=== PATIENT | male | born 1980 | race Hispanic/Latino ===

== ENCOUNTER 2020-09-04 13:00 | Inpatient (IN) | payer OTHER, SELFPAY ==
--- OUTSIDE RECORDS SUMMARY | 2020-09-04 13:02 | XMS REPORT | Continuity of Care Document ---
:1980 Author Organization [facility] t Address [facility] [place] [address] [place] [id number] Care Team Providers Name Role Phone NONE Primary Care Physician Unavailable Problems This patient has no known problems. Allergies, Adverse Reactions, Alerts This patient has no known allergies or adverse reactions. Medications This patient has no known medications. Procedures This patient has no known procedures. Encounters Start End Encounter Admission Attending Care Care Encounter Source Date/Time Date/Time Type Type Clinicians Facility Department ID 2016-08-05 2016-08-05 Emergency [facility] [id number] Medical 12:20:00 12:20:00 [facility] Results This patient has no known results.
[2020-09-04 13:49] LABS: Absolute Lymphocytes (CBC) 4.4 K/uL (0.7-4.9); Basophils % 0.4 % (0-1.3); Hematocrit 49.4 % (39.6-49.0); Lymphocytes % 16.5 % (15.3-44.8); MPV 8.4 fL (7.6-11.3); RBC Red Blood Cell Count 5.49 M/uL (4.33-5.43)
[2020-09-04] MEDS ORDERED: ONDANSETRON 4 MG/2 ML VIAL ONE (13:51)
[2020-09-04 13:58] LABS: Potassium 3.4 mmol/L (3.5-5.1)
[2020-09-04] MEDS ORDERED: FOSPHENYTOIN PE 1,000 MG in NA CHLORIDE 0.9% 100 ML IV ONE (14:00)
--- NOTE | 2020-09-04 14:07 | RAD REPORT ---
EXAM DESCRIPTION: CT - Head Brain Wo Cont - 09/04/2020 1:48 pm CLINICAL HISTORY: SEIZURE COMPARISON: <Comparisons> TECHNIQUE: Axial 5 mm thick images of the head were obtained without IV contrast. All CT scans are performed using dose optimization technique as appropriate and may include automated exposure control or mA/KV adjustment according to patient size. FINDINGS: No intracranial hemorrhage, mass, edema or shift of mid-line structures. No acute infarcti on changes seen. No abnormal extra-axial fluid collections. Ventricles are normal. Physiologic calci fications are present. Mastoid air cells and visualized portions of the paranasal sinuses are clear. No acute bony findings. IMPRESSION: Negative non-contrast CT head examination. No abnormality seen as possible seizure foc us.
[2020-09-04 14:16] LABS: Arterial Blood Carboxyhemoglob 0.5 % (0-1.5); Blood Gas Oxyhemoglobin 87.7 % (94-97)
[2020-09-04] MEDS ORDERED: D50W 25 GM/50 ML SYRINGE IV PRN (14:23)
[2020-09-04] MEDS ORDERED: GLUCAGON 1 MG/VIAL IM PRN (14:23)
[2020-09-04] MEDS ORDERED: NA CHLORIDE 0.9% 1,000 ML ONE ×2 (14:27→14:49)
[2020-09-04] MEDS ORDERED: INSULIN -REGULAR HUMAN 100 UNIT in NA CHLORIDE 0.9% 100 ML IV SCH (14:30)
--- NOTE | 2020-09-04 14:40 | EDPHYS ---
Physician Documentation [facility] Name: Joe Bell III Age: 39 yrs Sex: Male : 1980 Arrival Date: 09/04/2020 Time: 13:04 Bed 14 Private MD: ED Physician Kurt Narvaez HPI: 09/04 16:28 This 39 yrs old Male presents to ER via Wheelchair with complaints of Seizure. kb 16:28 The patient presents with a history of multiple seizures, a total of 3. Character of kb seizure(s): Loss of consciousness: it is not known if the patient experienced loss of consciousness, Motor activity: generalized, shaking all over, Incontinence: none, Apnea: the patient did not experience apnea. Seizure onset: just prior to arrival. Context: the seizure(s) was witnessed, by family, occurred on a street or driveway, occurred while the patient was sitting, Contributing factors: missed recent doses of medications. Seizure Hx: Original onset: since childhood,\E\ Last seizure: The patient's last seizure was approximately 3 year(s) ago, Seizure medications: phenytoin. Associated injury: The patient did not suffer any apparent associated injury. Current symptoms: drowsy. The patient has not experienced similar symptoms in the past. The patient has not recently seen a physician. Family reports pt said he didn't feel well this morning, then he had [address] to work. States he forgot to take his medication so they took it to him and he vomited after taking it so they brought him here. Reports he had a third seizure on the way here. Pt awake, alert and oriented x4. c/o being thirsty, no other complaints at this time. Last seizure was 3 years ago. . Historical: - Allergies: 13:08 No Known Allergies; em - PMHx: 13:08 Seizures; em - PSHx: 13:08 None; em - Immunization history:: Adult Immunizations up to date. - Social history:: Smoking status: Patient denies any tobacco usage or history of. ROS: 16:23 Respiratory: Negative for shortness of breath, cough, wheezing, and pleuritic chest kb pain. 16:23 Constitutional: Positive for malaise. 16:23 Abdomen/GI: Positive for nausea and vomiting. 16:23 Neuro: Positive for seizure activity. 16:23 All other systems are negative. Exam: 16:26 ENT: Moist Mucous membranes Cardiovascular: Regular rate and rhythm with a normal S1 kb and S2. No gallops, murmurs, or rubs. No pulse deficits. Respiratory: Respirations even and unlabored. No increased work of breathing, no retractions or nasal flaring. Abdomen/GI: Soft, non-tender. No distention Skin: Warm, dry with normal turgor. Normal color. MS/ Extremity: Pulses equal, no cyanosis. Neurovascular intact. Full, normal range of motion. Neuro: Awake and alert, GCS 15, oriented to person, place, time, and situation. Moves all extremities. Normal gait. Psych: Awake, alert, with orientation to person, place and time. Behavior, mood, and affect are within normal limits. 16:26 Constitutional: The patient appears alert, awake, uncomfortable. Vital Signs: 13:06 BP 131 / ???; Pulse 89; Resp 18; Pulse Ox 97% on R/A; Weight 113.4 kg; Height 5 ft. 8 em in. (172.72 cm); 13:40 BP 123 / 78; Pulse 90; Resp 16; Pulse Ox 100% on R/A; vg1 15:49 BP 129 / 82; Pulse 87; Resp 16; Temp 97.9; Pulse Ox 100% on R/A; vg1 16:00 BP 124 / 89; Pulse 93; Resp 14; Pulse Ox 100% on R/A; vg1 17:00 BP 111 / 84; Pulse 94; Resp 16; Pulse Ox 100% on R/A; vg1 13:06 Body Mass Index 38.01 (113.40 kg, 172.72 cm) em Bonnie Coma Score: 13:08 Eye Response: spontaneous(4). Verbal Response: confused(4). Motor Response: obeys em commands(6). Total: 14. MDM: 13:11 Patient medically screened. kb 14:38 Data reviewed: vital signs, nurses notes. Data interpreted: Pulse oximetry: on room air kb is 100 %. Interpretation: normal. Counseling: I had a detailed discussion with the patient and/or guardian regarding: the historical points, exam findings, and any diagnostic results supporting the discharge/admit diagnosis, lab results, radiology results, the need for further work-up and treatment in the hospital. Physician consultation: Efren Palacios MD was contacted at 14:38, regarding admission, to the ICU, patient's condition, and will see patient in ED, would like consultation with Dr. Sr. 14:38 Physician consultation: Yury Sr MD was contacted at 14:38, regarding consult, kb patient's condition, and will see patient in inpatient room. 09/04 13:13 Order name: CBC with Diff; Complete Time: 15:48 kb 09/04 13:13 Order name: Basic Metabolic Panel; Complete Time: 14:02 kb 09/04 14:03 Order name: Acetone, Serum; Complete Time: 14:47 kb 09/04 14:04 Order name: ABG; Complete Time: 15:08 kb 09/04 14:37 Order name: Dilantin 09/04 14:37 Order name: Lactate; Complete Time: 15:49 EDMS 09/04 14:37 Order name: Urinalysis EDMS 09/04 14:37 Order name: Urine Drug Screen; Complete Time: 15:48 EDMS 09/04 14:38 Order name: Phenytoin (Dilantin) Level; Complete Time: 16:12 EDMS 09/04 14:38 Order name: Liver (Hepatic) Function; Complete Time: 16:12 EDMS 09/04 14:40 Order name: Blood Culture EDFL 09/04 14:40 Order name: Lipase; Complete Time: 15:48 EDMS 09/04 13:26 Order name: CT Head Brain wo Cont; Complete Time: 14:15 kb 09/04 14:40 Order name: Chest Single View; Complete Time: 16:12 EDMS 09/04 15:06 Order name: CBC with Automated Diff EDMS 09/04 15:06 Order name: CBC with Automated Diff EDMS 09/04 15:06 Order name: Comprehensive Metabolic Panel EDMS 09/04 15:06 Order name: Comprehensive Metabolic Panel EDMS 09/04 15:12 Order name: Urine Dipstick-Ancillary; Complete Time: 15:16 EDMS 09/04 15:18 Order name: SARS-COV-2 RT PCR; Complete Time: 15:19 EDMS 09/04 15:26 Order name: Manual Differential; Complete Time: 15:48 EDMS 09/04 15:50 Order name: Glucose, Ancillary Testing; Complete Time: 15:53 EDMS 09/04 13:13 Order name: IV Start; Complete Time: 13:30 kb 09/04 14:03 Order name: Urine Dipstick-Ancillary (obtain specimen); Complete Time: 16:12 kb 09/04 15:06 Order name: Regular EDMS Administered Medications: 13:34 Drug: Zofran (Ondansetron) 4 mg Route: IVP; Site: left antecubital; vg1 16:12 Follow up: Response: No adverse reaction vg1 13:56 Drug: Fosphenytoin 1 grams Route: IVPB; Site: left antecubital; vg1 14:15 Follow up: IV Status: Completed infusion vg1 14:11 Drug: NS 0.9% 1000 ml Route: IV; Rate: 1000 ml; Site: left antecubital; ca1 16:51 Follow up: IV Status: Completed infusion; IV Intake: 1000ml vg1 14:29 Not Given (Duplicate Order): Insulin Drip - (Insulin Regular Human 100 units, NS 0.9% kb 100 ml) IV at calculated rate continuous; Standard concentration 1unit/ml; Dose for DKA is 0.1 units/kg/hr 14:30 CANCELLED (Duplicate Order): Insulin Drip - (Insulin Regular Human 100 units, NS 0.9% kb 100 ml) IV at 6 units/hr continuous 14:38 Drug: NS 0.9% 1000 ml Route: IV; Rate: 1000 ml; Site: left antecubital; ca1 16:51 Follow up: IV Status: Completed infusion; IV Intake: 1000ml vg1 14:38 Drug: Insulin Drip - (Insulin Regular Human 100 units, NS 0.9% 100 ml) {Co-Signature: ca1 vg1 (Claire Mercado RN).} Route: IV; Rate: calculated rate; Site: left antecubital; 15:53 Follow up: IV Status: Order to discontinue infusion; Spoke with DR Palacios of pt BG level vg1 of 132, provider stated to stop Insulin Drip 15:54 Not Given (Physician Discretion): D5-1/2 NS 1000 ml IV at 100 ml/hr bolus vg1 Disposition: 18:16 Co-signature as Attending Physician, Kurt Narvaez MD I agree with the assessment and kdr plan of care. Disposition: 09/04/20 14:39 Hospitalization ordered by Efren Palacios for Inpatient Admission. Preliminary diagnosis are Diabetes mellitus due to underlying condition with ketoacidosis, Epilepsy and recurrent seizures. - Bed requested for Telemetry/MedSurg (Inpatient). - Status is Inpatient Admission. vg1 - Condition is Stable. - Problem is new. - Symptoms are unchanged. Signatures: Dispatcher [employer] EDFL Carla Mcdermott, WATER RESOURCE SPECIALIST-C WATER RESOURCE SPECIALIST-Ckb Winsome Marinelli, RN RN dw Kurt Narvaez MD MD [facility] Ferny Sue, RN RN Nathalia Jerome RN RN [facility] Claire Mercado RN RN vg1 Claire Mercado RN vg1 Corrections: (The following items were deleted from the chart) 14:05 14:04 HEMOGLOBIN A1C+CHEM A1C.LAB.BRZ ordered. EDFL EDMS 14:30 14:30 Insulin Drip - (Insulin Regular Human 100 units, NS 0.9% 100 ml) IV at 6 units/hr kb continuous ordered. kb 14:37 14:08 CORONAVIRUS+MR.LAB.BRZ ordered. EDFL EDMS 15:40 14:39 Hospitalization Ordered by Efren Palacios MD for Inpatient Admission. Preliminary dw diagnosis is Diabetes mellitus due to underlying condition with ketoacidosis; Epilepsy and recurrent seizures. Bed requested for Intensive Care Unit. Status is Inpatient Admission. Condition is Stable. Problem is new. Symptoms are unchanged. kb 17:05 15:40 09/04/2020 14:39 Hospitalization Ordered by Efren Palacios MD for Inpatient vg1 Admission. Preliminary diagnosis is Diabetes mellitus due to underlying condition with ketoacidosis; Epilepsy and recurrent seizures. Bed requested for Telemetry/MedSurg (Inpatient). Status is Inpatient Admission. Condition is Stable. Problem is new. Symptoms are unchanged. dw
--- NOTE | 2020-09-04 14:40 | ER ---
Nurse's Notes [facility] Name: Joe Bell III Age: 39 yrs Sex: Male : 1980 Arrival Date: 09/04/2020 Time: 13:04 Bed 14 Private MD: Diagnosis: Diabetes mellitus due to underlying condition with ketoacidosis;Epilepsy and recurrent seizures Presentation: 09/04 13:06 Chief complaint: Patient states: had 3 seizures today while on the road, hx of seizure, em each lasted about 2-3 minutes, did not take his medication today, has not had a seizure in 3 years, reports N/V. Coronavirus screen: Client denies travel out of the [place] in the last 14 days. Ebola Screen: Patient negative for fever greater than or equal to 101.5 degrees Fahrenheit, and additional compatible Ebola Virus Disease symptoms Patient denies exposure to infectious person. Patient denies travel to an Ebola-affected area in the 21 days before illness onset. No symptoms or risks identified at this time. Initial Sepsis Screen: Does the patient meet any 2 criteria? Yes Does the patient have a suspected source of infection? No. Patient's initial sepsis screen is negative. Risk Assessment: Do you want to hurt yourself or someone else? Patient reports no desire to harm self or others. Onset of symptoms was September 04, 2020. 13:06 Method Of Arrival: Wheelchair em 13:06 Acuity: RAJNI 3 em 14:38 Acuity: RAJNI 2 ca1 Historical: - Allergies: 13:08 No Known Allergies; em - PMHx: 13:08 Seizures; em - PSHx: 13:08 None; em - Immunization history:: Adult Immunizations up to date. - Social history:: Smoking status: Patient denies any tobacco usage or history of. Screenin:40 Abuse screen: Denies threats or abuse. Nutritional screening: No deficits noted. vg1 Tuberculosis screening: No symptoms or risk factors identified. Fall Risk No fall in past 12 months (0 pts). No secondary diagnosis (0 pts). IV access (20 points). Ambulatory Aid- None/Bed Rest/Nurse Assist (0 pts). Gait- Normal/Bed Rest/Wheelchair (0 pts) Mental Status- Oriented to own ability (0 pts). Total Ma Fall Scale indicates No Risk (0-24 pts). Assessment: 13:39 General: Appears in no apparent distress. uncomfortable, Behavior is cooperative, vg1 drowsy. Pain: Denies pain. Neuro: Level of Consciousness is awake, alert, obeys commands, Oriented to person, place, time, situation. Cardiovascular: Patient's skin is warm and dry. Respiratory: Airway is patent Respiratory effort is even, unlabored. GI: No signs and/or symptoms were reported involving the gastrointestinal system. : No signs and/or symptoms were reported regarding the genitourinary system. EENT: No signs and/or symptoms were reported regarding the EENT system. Derm: Skin is intact, is healthy with good turgor. Musculoskeletal: Circulation, motion, and sensation intact. 15:39 Reassessment: Patient appears in no apparent distress at this time. Patient and/or vg1 family updated on plan of care and expected duration. Pain level reassessed. Patient is alert, oriented x 3, equal unlabored respirations, skin warm/dry/pink. FS 132, Provider Notified. 15:45 Reassessment: Received VO from DR Palacios to stop insulin drip and continue pt on fluids. vg1 15:49 Reassessment: Critical Lab results, Lactate 7.7; DR Palacios notified. vg1 16:16 Reassessment: attempted to call report. vg1 17:02 Reassessment: Patient appears in no apparent distress at this time. Patient and/or vg1 family updated on plan of care and expected duration. Pain level reassessed. Patient is alert, oriented x 3, equal unlabored respirations, skin warm/dry/pink. BG 260, Provider notified. Vital Signs: 13:06 BP 131 / ???; Pulse 89; Resp 18; Pulse Ox 97% on R/A; Weight 113.4 kg; Height 5 ft. 8 em in. (172.72 cm); 13:40 BP 123 / 78; Pulse 90; Resp 16; Pulse Ox 100% on R/A; vg1 15:49 BP 129 / 82; Pulse 87; Resp 16; Temp 97.9; Pulse Ox 100% on R/A; vg1 16:00 BP 124 / 89; Pulse 93; Resp 14; Pulse Ox 100% on R/A; vg1 17:00 BP 111 / 84; Pulse 94; Resp 16; Pulse Ox 100% on R/A; vg1 13:06 Body Mass Index 38.01 (113.40 kg, 172.72 cm) em Bonnie Coma Score: 13:08 Eye Response: spontaneous(4). Verbal Response: confused(4). Motor Response: obeys em commands(6). Total: 14. ED Course: 13:04 Patient arrived in ED. em 13:07 Triage completed. em 13:08 Arm band placed on. em 13:11 Carla Mcdermott FNP-C [facility]. kb 13:11 Kurt Narvaez MD is Attending Physician. kb 13:14 Claire Mercado, RN is Primary Nurse. vg1 13:25 Missed attempt(s): 20 gauge in right antecubital area. Bleeding controlled, band aid jp3 applied, catheter tip intact. 13:31 Placed in gown. Bed in low position. Call light in reach. Side rails up X2. Seizure jp3 precautions initiated. Warm blanket given. Pillow given. Verbal reassurance given. Pulse ox on. NIBP on. 13:31 Initial lab(s) drawn, by me, sent to lab. Inserted saline lock: 20 gauge in left upper jp3 arm, using aseptic technique. Blood collected. Patient maintains SpO2 saturation greater than 95% on room air. 13:[address] via stretcher. vg1 13:48 CT Head Brain wo Cont In Process Unspecified. EDMS 14:05 Notified Nurse Practitioner and/or Physician Chain Maker of a critical lab result(s), CO2 ca1 11. Notified primary nurse of. 14:09 Inserted saline lock: 24 gauge in left antecubital area, using aseptic technique. Blood ds4 collected. 14:19 COVID swab sent to lab. vg1 14:39 Efren Palacios MD is Hospitalizing Provider. kb 14:55 Missed attempt(s): 20 gauge in right antecubital area. Bleeding controlled, band aid ca1 applied, catheter tip intact. 15:15 Inserted saline lock: 22 gauge in right upper arm, using aseptic technique. Blood ca1 collected. 15:15 Initial lab(s) drawn, sent to lab. First set of blood cultures drawn by me. ca1 16:10 No provider procedures requiring assistance completed. Patient admitted, IV remains in vg1 place. Administered Medications: 13:34 Drug: Zofran (Ondansetron) 4 mg Route: IVP; Site: left antecubital; vg1 16:12 Follow up: Response: No adverse reaction vg1 13:56 Drug: Fosphenytoin 1 grams Route: IVPB; Site: left antecubital; vg1 14:15 Follow up: IV Status: Completed infusion vg1 14:11 Drug: NS 0.9% 1000 ml Route: IV; Rate: 1000 ml; Site: left antecubital; ca1 16:51 Follow up: IV Status: Completed infusion; IV Intake: 1000ml vg1 14:29 Not Given (Duplicate Order): Insulin Drip - (Insulin Regular Human 100 units, NS 0.9% kb 100 ml) IV at calculated rate continuous; Standard concentration 1unit/ml; Dose for DKA is 0.1 units/kg/hr 14:30 CANCELLED (Duplicate Order): Insulin Drip - (Insulin Regular Human 100 units, NS 0.9% kb 100 ml) IV at 6 units/hr continuous 14:38 Drug: NS 0.9% 1000 ml Route: IV; Rate: 1000 ml; Site: left antecubital; ca1 16:51 Follow up: IV Status: Completed infusion; IV Intake: 1000ml vg1 14:38 Drug: Insulin Drip - (Insulin Regular Human 100 units, NS 0.9% 100 ml) {Co-Signature: ca1 vg1 (Claire Mercado RN).} Route: IV; Rate: calculated rate; Site: left antecubital; 15:53 Follow up: IV Status: Order to discontinue infusion; Spoke with DR Palacios of pt BG level vg1 of 132, provider stated to stop Insulin Drip 15:54 Not Given (Physician Discretion): D5-1/2 NS 1000 ml IV at 100 ml/hr bolus vg1 Intake: 16:51 IV: 1000ml; Total: 1000ml. vg1 16:51 IV: 1000ml; Total: 2000ml. vg1 Outcome: 14:39 Decision to Hospitalize by Provider. kb 16:49 Admitted to Tele accompanied by tech, via stretcher, room 231, with chart, Report vg1 called to HUGO Joshi 16:49 Condition: stable 16:49 Instructed on the need for admit. 17:05 Patient left the ED. vg1 Signatures: Dispatcher [employer] Carla Garza, SENIOR BENEFITS SPECIALIST-C CHRISTOPHE-Ferny Carrion, RN RN Yusef Yang ds4 Galo Carrington jp3 Nathalia Jerome RN RN ca1 Claire Mercado RN RN vg1 Claire Mercado RN vg1 Corrections: (The following items were deleted from the chart) 15:49 15:45 Reassessment: Received VO from DR Palacios to stop insulin drip and continue pt on vg1 fluids. vg1
[2020-09-04] MEDS ORDERED: ACETAMINOPHEN 500 MG TAB PO PRN (15:03)
[2020-09-04] MEDS ORDERED: MORPHINE 2 MG/ML SYR IV PRN (15:03)
[2020-09-04] MEDS ORDERED: ONDANSETRON 4 MG/2 ML VIAL IV PRN (15:03)
[2020-09-04 15:12] LABS: Urine Blood 2+ (Negative); Urine Glucose 1+ (Negative); Urine Protein 2+ (Negative); Urine Specific Gravity >=1.030 (1.005-1.030)
[2020-09-04 15:25] LABS: Blood Morphology Comment NOT SEEN (NOT SEEN); Platelet Estimate ADEQ
--- NOTE | 2020-09-04 15:26 | P.HP ---
Certification for Inpatient Patient admitted to: Inpatient With expected LOS: >2 Midnights Practitioner: I am a practitioner with admitting privileges, knowledge of patient current condition, hospital course, and medical plan of care. Services: Services provided to patient in accordance with Admission requirements found in Title 42 Section 412.3 of the Code of Federal Regulations Patient History Date of Service: 09/04/20 Reason for admission: Seizure episodes History of Present Illness: 39-year-old male with past medical history of seizure disorder on medications brought to ER with recurrent seizure episodes today. Patient states that he has been compliant with medications. He went to work this morning off and while waiting for to start work, all of sudden he had a seizure episode. Started as rolling of the eyes followed by tonic-clonic seizure. patient is a poor historian hence most of the history is obtained from the chart review and also talking with family and coworker . 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 Denies any headache or shortness of breath No sick contacts Assessed in the ER and was admitted for further management of seizure episodes and leukocytosis BP 123 / 78; Pulse 90; Resp 16; Pulse Ox 100% on R/A Allergies No Known Allergies Allergy (Unverified 09/04/20 14:22) Home medications list reviewed: Yes - Past Medical/Surgical History Diabetic: No Past Medical History: Reviewed- Non-Contributory -: Seizure Past Surgical History: Reviewed- Non-Contributory - Family History Mother -: Diabetes - Social History Smoking Status: Never smoker Review of Systems 10-point ROS is otherwise unremarkable Physical Examination - Vital Signs Temperature: 97.8 F Blood Pressure: 132/76 Pulse: 76 Respirations: 18 - Physical Exam General: Alert, In no apparent distress, Oriented x2 HEENT: Atraumatic, Normocephalic Neck: Supple Respiratory: Clear to auscultation bilaterally, Normal air movement Cardiovascular: Regular rate/rhythm, Normal S1 S2 Capillary refill: <2 Seconds Gastrointestinal: Soft and benign, W/out hepatosplenomegaly Musculoskeletal: No clubbing, No swelling Integumentary: No rashes, No breakdown Neurological: Normal speech, Normal strength at 5/5 x4 extr, Cranial nerves 3-12 intact Lymphatics: No axilla or inguinal lymphadenopathy - Studies Laboratory Data (last 24 hrs) 09/04/20 13:29: Sodium 139, Potassium 3.4 L, BUN 13, Creatinine 1.64 H, Glucose 274 H 09/04/20 13:29: WBC 26.60 H*, Hgb 16.0, Hct 49.4 H, Plt Count 351 Assessment and Plan - Problems (Diagnosis) (1) Seizure disorder Current Visit: Yes Status: Acute (2) Lactic acidosis Current Visit: Yes Status: Acute (3) Dehydration Current Visit: Yes Status: Acute (4) Acute kidney injury Current Visit: Yes Status: Acute (5) Breakthrough seizure Current Visit: Yes Status: Acute (6) Leukocytosis Current Visit: Yes Status: Acute (7) Acidosis, metabolic Current Visit: Yes Status: Acute (8) Nausea and vomiting Current Visit: Yes Status: Acute (9) Hematuria Current Visit: Yes Status: Acute - Plan Breakthrough seizures Seizure disorder Lactic acidosis Leukocytosis Acute kidney injury Dehydration Metabolic acidosis UDS positive with THC Hyperglycemia Plan Monitor closely under telemetry start on aggressive hydration Monitor renal parameters Start on empiric antibiotics. Will get blood cultures UA Serial lactic acid CT of the head is negative for any acute changes Neurology consulted Start on Keppra patient is on phenytoin at home Will get a phenytoin level Will get a ultrasound of the abdomen Hyperglycemia noted will start on insulin sliding scale. We get an A1c as the patient denies any history of diabetes GI/DVT prophylaxis. Discharge Plan: Home Plan to discharge in: 48 Hours - Advance Directives Does patient have a Living Will: No Does patient have a Durable POA for Healthcare: No Time Spent Managing Pts Care (In Minutes): 43
[2020-09-04 15:42] LABS: Barbiturates NEGATIVE (NEGATIVE); Benzodiazepines NEGATIVE (NEGATIVE); Cocaine NEGATIVE (NEGATIVE); METHAMPHETAM NEGATIVE (NEGATIVE); Methadone NEGATIVE (NEGATIVE); Opiates NEGATIVE (NEGATIVE); Phencyclidine NEGATIVE (NEGATIVE); THC Cannibis POSITIVE (NEGATIVE)
[2020-09-04] MEDS ORDERED: LORazepam 2 MG/ML VIAL IV PRN (15:59)
[2020-09-04] MEDS: NA CHLORIDE 0.9% 1,000 ML IV SCH (16:00)
[2020-09-04 16:02] LABS: ALT/SGPT 56 U/L (12-78); AST/SGOT 26 U/L (15-37); Albumin 4.8 g/dL (3.4-5.0); Alkaline Phosphatase 148 U/L (45-117); Bilirubin Direct < 0.1 mg/dL (0-0.2); Bilirubin Total 0.2 mg/dL (0.2-1.0); Phenytoin (Dilantin) Level 3.4 ug/mL (10.0-20.0); Protein, Total 9.3 g/dL (6.4-8.2)
--- NOTE | 2020-09-04 16:10 | RAD REPORT ---
EXAM DESCRIPTION: RAD - Chest Single View - 09/04/2020 3:20 pm CLINICAL HISTORY: sepsis COMPARISON: None TECHNIQUE: AP portable chest image was obtained 09/04/2020 3:20 pm . FINDINGS: Lungs are clear. Heart and vasculature are normal. No measurable pleural effusion and no p neumothorax. No acute bony abnormality seen. No acute aortic findings suspected. IMPRESSION: No acute cardiopulmonary process.
[2020-09-04] MEDS ORDERED: PIPER/TAZO/NS 3.375gm 3.375 GM/100 ML BAG IVPB SCH (17:00)
[2020-09-04] MEDS ORDERED: NA CHLORIDE 0.9% 1,000 ML IV SCH (17:00)
[2020-09-04 17:57] VITALS: BMI 38.0
[2020-09-04] MEDS: levETIRAcetam 500 MG in NA CHLORIDE 0.9% 100 ML IV SCH (18:27)
[2020-09-04] MEDS: PIPER/TAZO/NS 3.375gm 3.375 GM/100 ML BAG IVPB SCH (19:00)
--- NOTE | 2020-09-04 20:08 | CON ---
Reason For Consultation: Consultation called because of seizures. History Of Present Illness: Mr. Bell is a 39-year-old patient with a history of childhood seizures, who was reportedly doing well, no seizures in 3 years until earlier today. His notes that he had 3 seizures today. He was waiting to go to work when suddenly head turn to the right, ey es rolled up, his arms were stiff to side, then began shaking his back. His said he bit his ton carmen and lost urine control and continue seizing for about a minute to 2 minutes. After that, he joe ined confused for at least 5 to 10 minutes before he began to respond again, but was still disoriente d. The patient was supposed to be on Dilantin 300 mg twice daily actually, but was only taking the morni ng dosage and he was smoking marijuana. His blood level for Dilantin in the emergency room was 3.4. His head CT scan was unremarkable for any acute ischemic or hemorrhagic change, and his drug screen was positive for marijuana. His white blood cell count was elevated, possibly due to demargination t o 26,060 with neutrophils 78%, hemoglobin and hematocrit unremarkable. Blood gas showed pH of 7.13. He was acidotic with his chemistry showing lactic acid elevated at 7.7. Procalcitonin was not done. Blood sugars ranged 75 to 132. Liver function studies otherwise show slightly elevated alkaline ph osphatase of 148, normal ALT and AST, lipase is normal at 115, and serum protein is slightly elevated . His carbon dioxide level was down to 11, creatinine 1.64 consistent with dehydration, and glucose initially was 274 with a low potassium of 3.4. Urinalysis showed a trace ketones, 2+ blood, 2+ prote in. His COVID-19 test was negative. As indicated, head CT scan was negative. He was given 1 g load of fosphenytoin and replaced on his medication regimen of 300 mg 3 times daily. He did also have some Ativan as needed for seizures. He was put on Zosyn for possible infection, 3 .375 mg every 8 hours, and he has actually put on Keppra 500 mg every 12 hours after the fosphenytoin load. Past Medical History: As indicated, seizures. Past Surgical History: None. Family History: Diabetes in mother. No family history of seizures, at least he denied it. Allergies: NO KNOWN DRUG ALLERGIES. Social History: Admits to smoking marijuana regularly. Denies any recent alcohol use. Review of Systems: He denies any recent fevers, chills, nausea, vomiting, myalgias, arthralgias, rash, headache, weight change. No psychiatric complaints, gastrointestinal or genitourinary complaints. Physical Examination: Vital Signs: Blood pressure 111/84, pulse 76, respiratory rate 14, temperature 97.8, oxygen saturati on 100% on room air. Weight 250 pounds, height 5 feet 8 inches, BMI 38.0. General: Mr. Bell is resting in bed. He is in no acute distress. HEENT: He is normocephalic, atraumatic. Sclerae anicteric. Oropharynx is pink and moist. Neck: Supple. Chest: Clear. Heart: Regular. Extremities: No edema or cyanosis. Neurological: Alert, oriented to situation, place, time. Follows commands appropriately. Cranial n erves 2 through 12 intact. Motor is intact in the upper and lower extremities, 5/5 proximally and di stally. Sensation intact in the upper and lower extremities. Coordination intact in the upper and l ower extremities. Reflexes 2+ in the upper and lower extremities. With gait, he has good stance and stride. Assessment: Mr. 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 He does have elevated white blood cell count, but may be due to demargination ve rsus infection. He does have cultures pending and he is receiving Zosyn. He did receive a gram of K eppra. His head CT scan showed no acute ischemic or hemorrhagic changes. Neurologic examination is normal. Plan: 1.It may be okay to continue with the Dilantin at 300 mg twice daily. Consider the Keppra to 500 mg twice daily. 2.The patient was instructed he should not drive or operate heavy machinery for 3 months from the da te of his last seizure. 3.He was instructed to stop smoking marijuana. 4.He was instructed to maintain a seizure diary. 5.If his blood work normalizes tomorrow and he is able to tolerate his medications, he may be discha rged home and follow up with Dr. Sr in the office in 1 month. LB/DAVID Voice ID: [id number] Report ID: [id number]
[2020-09-04 20:40] LABS: Potassium 4.4 mmol/L (3.5-5.1)
[2020-09-05] MEDS: PIPER/TAZO/NS 3.375gm 3.375 GM/100 ML BAG IVPB SCH ×3 (00:14→17:51)
[2020-09-05] MEDS: levETIRAcetam 500 MG in NA CHLORIDE 0.9% 100 ML IV SCH ×2 (04:18→17:25)
[2020-09-05] MEDS: NA CHLORIDE 0.9% 1,000 ML IV SCH ×2 (04:24→16:30)
[2020-09-05 06:27] LABS: Absolute Lymphocytes (CBC) 1.4 K/uL (0.7-4.9); Basophils % 0.5 % (0-1.3); Hematocrit 41.2 % (39.6-49.0); MPV 8.1 fL (7.6-11.3); RBC Red Blood Cell Count 4.79 M/uL (4.33-5.43)
[2020-09-05 06:54] LABS: Albumin 3.7 g/dL (3.4-5.0); Bilirubin Total 0.4 mg/dL (0.2-1.0); Potassium 4.1 mmol/L (3.5-5.1); Protein, Total 7.3 g/dL (6.4-8.2)
--- NOTE | 2020-09-05 11:29 | RAD REPORT ---
EXAM DESCRIPTION: US - Abdomen Exam Complete - 09/05/2020 10:56 am CLINICAL HISTORY: Abdominal pain. nausea /vomiting COMPARISON: No comparisons FINDINGS: Mild diffuse fatty liver. No focal liver lesions or intrahepatic biliary dilatation is see n. The gallbladder demonstrates no gallstones, pericholecystic fluid or gallbladder wall thickening. Co mmon bile duct is normal in caliber measuring 5 millimeters. Both kidneys are normal in size, shape and echotexture. No hydronephrosis, focal lesion of concern or perinephric fluid. The spleen is normal in size measuring 8 centimeters. The pancreas and aorta are obscured by bowel gas. The visualized aspects of the IVC are grossly normal. IMPRESSION: Mild diffuse fatty liver.
[2020-09-05 15:50] LABS: Absolute Lymphocytes (CBC) 1.8 K/uL (0.7-4.9); Basophils % 0.5 % (0-1.3); Hematocrit 43.2 % (39.6-49.0); Lymphocytes % 13.2 % (15.3-44.8); MPV 8.1 fL (7.6-11.3); RBC Red Blood Cell Count 4.99 M/uL (4.33-5.43)
[2020-09-05 16:05] LABS: Potassium 3.7 mmol/L (3.5-5.1)
[2020-09-06] MEDS: PIPER/TAZO/NS 3.375gm 3.375 GM/100 ML BAG IVPB SCH ×2 (00:52→10:03)
[2020-09-06] MEDS: levETIRAcetam 500 MG in NA CHLORIDE 0.9% 100 ML IV SCH (05:50)
[2020-09-06] MEDS: NA CHLORIDE 0.9% 1,000 ML IV SCH (05:50)
[2020-09-06 05:59] LABS: Absolute Lymphocytes (CBC) 2.3 K/uL (0.7-4.9); Basophils % 0.7 % (0-1.3); Hematocrit 40.8 % (39.6-49.0); Lymphocytes % 20.6 % (15.3-44.8); MPV 8.1 fL (7.6-11.3); RBC Red Blood Cell Count 4.71 M/uL (4.33-5.43)
[2020-09-06 06:14] LABS: Magnesium 2.7 mg/dL (1.8-2.4); Phosphorus 2.4 mg/dL (2.5-4.9); Potassium 3.8 mmol/L (3.5-5.1)
[2020-09-06 08:53] VITALS: TEMP 97.8
[2020-09-06 10:36] VITALS: O2SAT 98
[2020-09-06 14:00] VITALS: BP 137/73
--- NOTE | 2020-09-07 02:37 | P.DS ---
Discharge Date: 09/06/20 Disposition: ROUTINE DISCHARGE Discharge Condition: GOOD Reason for Admission: Seizure episodes Consultations: Neurology Brief History of Present Illness: 39-year-old male with past medical history of seizure disorder on medications brought to ER with recurrent seizure episodes today. Patient states that he has been compliant with medications. He went to work this morning off and while waiting for to start work, all of sudden he had a seizure episode. Started as rolling of the eyes followed by tonic-clonic seizure. patient is a poor historian hence most of the history is obtained from the chart review and also talking with family and coworker . 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 Denies any headache or shortness of breath No sick contacts Assessed in the ER and was admitted for further management of seizure episodes and leukocytosis BP 123 / 78; Pulse 90; Resp 16; Pulse Ox 100% on R/A Hospital Course: Patient was not taking his anti epileptic as recommended. Patient was also smoking marijuana. Patient is advised to start taking his phenytoin 300 mg p.o. b.i.d. and recheck labs in 1-2 weeks to monitor his levels. Follow with Neurology in 1-2 weeks. Vital Signs/Physical Exam: Temp Pulse Resp BP Pulse Ox 97.8 F 64 16 137/73 97 09/06/20 12:00 09/06/20 12:00 09/06/20 12:00 09/06/20 12:00 09/06/20 12:00 General: Alert, In no apparent distress, Oriented x3 Laboratory Data at Discharge: WBC 11.10 K/uL (4.3-10.9) H D 09/06/20 05:10 Hgb 13.9 g/dL (13.6-17.9) 09/06/20 05:10 Hct 40.8 % (39.6-49.0) 09/06/20 05:10 Plt Count 243 K/uL (152-406) 09/06/20 05:10 Sodium 144 mmol/L (136-145) 09/06/20 05:10 Potassium 3.8 mmol/L (3.5-5.1) 09/06/20 05:10 BUN 16 mg/dL (7-18) 09/06/20 05:10 Creatinine 1.29 mg/dL (0.55-1.3) 09/06/20 05:10 Glucose 88 mg/dL (74-106) 09/06/20 05:10 Phosphorus 2.4 mg/dL (2.5-4.9) L 09/06/20 05:10 Magnesium 2.7 mg/dL (1.8-2.4) H 09/06/20 05:10 Total Bilirubin 0.4 mg/dL (0.2-1.0) 09/05/20 06:05 AST 27 U/L (15-37) 09/05/20 06:05 ALT 43 U/L (12-78) 09/05/20 06:05 Alkaline Phosphatase 96 U/L (45-117) 09/05/20 06:05 Lipase 115 U/L (73-393) 09/04/20 15:10 Home Medications: Phenytoin Sodium Extended [Dilantin] 300 mg PO DAILY 09/04/20 Phenytoin Sodium Extended [Dilantin] 300 mg PO DAILY AFTER SUPPER 09/04/20 Physician Discharge Instructions: OK TO DC IV AND DC HOME FOLLOW-UP WITH PRIMARY CARE PROVIDER IN 1-2 WEEKS FOLLOW-UP WITH neurologist IN 1-2 WEEKS RETURN TO THE ER IF symptoms worsen CALL or TEXT DR. BLANCO AT [phone] IF ANY QUESTIONS REGARDING HOSPITAL STAY. PLEASE CALL THE FLOOR AT [phone] IF ANY MEDICATION OR NURSING QUESTIONS. Diet: AHA Activity: Fall precautions Followup: Yury Sr MD [ASSOCIATE-ACTIVE - CAN ADMIT] - Unknown,U [Primary Care Provider] - Time spent managing pt's care (in minutes): 35
--- NOTE | 2020-09-07 02:40 | P.PN ---
Subjective Date of Service: 09/05/20 Patient is feeling better. Symptoms are improved. No seizure activity today. Blood sugars are stable. Lactate is back to normal. Possible discharge later today or in the morning. Review of Systems 10-point ROS is otherwise unremarkable Physical Examination - Vital Signs Temperature: 97.8 F Blood Pressure: 137/73 Pulse: 64 Respirations: 16 Pulse Ox (%): 97 - Physical Exam General: Alert, In no apparent distress, Oriented x3 Respiratory: Clear to auscultation bilaterally, Normal air movement Cardiovascular: Regular rate/rhythm, Normal S1 S2 Gastrointestinal: Normal bowel sounds, Soft and benign, Non-distended, No tenderness Musculoskeletal: No clubbing, No swelling, No tenderness Integumentary: No rashes Neurological: Normal speech, Normal tone, Normal affect Lymphatics: No axilla or inguinal lymphadenopathy - Studies Medications List Reviewed: Yes Assessment & Plan - Problems (Diagnosis) (1) Acidosis, metabolic Status: Acute (2) Breakthrough seizure Status: Acute (3) Lactic acidosis Status: Acute (4) Nausea and vomiting Status: Acute (5) Seizure disorder Status: Acute - Plan Plan: 1. Continue with anti epileptics 2. IV fluids 3. Monitor blood sugars closely 4. Monitor electrolytes 5. Outpatient phenytoin level 6. Outpatient EEG 7. GI and DVT prophylaxis Discharge Plan: Home Plan to discharge in: 48 Hours - Advance Directives Does patient have a Living Will: No Does patient have a Durable POA for Healthcare: No - Code Status/Comfort Care Code Status Assessed: Yes Code Status: Full Code Critical Care: No Time Spent Managing PTS Care (In Minutes): 35
== END 2020-09-06 13:05 | disposition home or self-care (01) | DRG 101 ==
LOC: ER 13:00 → ERHOLD 15:05 → 2ND 16:55
PROVIDERS: ADMIT Family Medicine; ATTEND Hospitalist
DX: G40.909 Epilepsy, unspecified, not intractable, without status epilepticus (principal); E87.2 Acidosis; N17.9 Acute kidney failure, unspecified; E86.0 Dehydration; D72.829 Elevated white blood cell count, unspecified; R73.9 Hyperglycemia, unspecified; R11.2 Nausea with vomiting, unspecified; R31.9 Hematuria, unspecified; Z20.822 Contact with and (suspected) exposure to COVID-19
CPT/HCPCS: 36415; 70450; 71045; 76700; 80048; 80053; 80076; 80185; 80307; 81003; 82010; 82550; 82805; 82947; 83036; 83605; 83690; 83735; 84100; 85025; 87040; 94760; 96361; 96365; 96367; 96375; 99285; J1953; J2405; J2543; J7030; Q2009; U0003

== ENCOUNTER 2020-11-27 16:39 | Emergency (ER) | payer OTHER, SELFPAY ==
--- OUTSIDE RECORDS SUMMARY | 2020-11-27 16:41 | XMS REPORT | Continuity of Care Document ---
:1980 Author Organization [facility] t Address [address] [place] [address] Dr. Burroughs [address] [place] [id number] Care Team Providers Name Role Phone NONE [...] ID 2016-08-05 2016-08-05 Emergency E [facility] [id number] Medical 12:20:00 12:20:00 [facility] Results This patient has no known results.
--- NOTE | 2020-11-27 19:04 | RAD REPORT ---
EXAM DESCRIPTION: US - Abdomen Exam Limited - 11/27/2020 6:53 pm CLINICAL HISTORY: ABD PAIN COMPARISON: Abdomen Exam Complete dated 09/05/2020 FINDINGS: The gallbladder demonstrates no gallstones. The gallbladder wall is thickened though this is likely due to a contracted gallbladder. The common bile duct is normal measuring 2. The liver demonstrates no findings of intrahepatic biliary dilatation. IMPRESSION: Contracted gallbladder without evidence of cholelithiasis or sonographic evidence of acu te cholecystitis.
[2020-11-27 19:38] LABS: ALT/SGPT 36 U/L (12-78); AST/SGOT 10 U/L (15-37); Albumin 4.2 g/dL (3.4-5.0); Alkaline Phosphatase 120 U/L (45-117); BUN Blood Urea Nitrogen 12 mg/dL (7-18); Bicarbonate 33 mmol/L (21-32); Bilirubin Direct < 0.1 mg/dL (0-0.2); Bilirubin Total 0.3 mg/dL (0.2-1.0); Glucose Level 83 mg/dL (74-106); Lipase 98 U/L (73-393); Potassium 4.1 mmol/L (3.5-5.1); Protein, Total 8.1 g/dL (6.4-8.2); Sodium Level 143 mmol/L (136-145)
[2020-11-27 19:44] LABS: Absolute Lymphocytes (CBC) 2.1 K/uL (0.7-4.9); Basophils % 0.4 % (0-1.3); Hematocrit 44.4 % (39.6-49.0); Lymphocytes % 18.1 % (15.3-44.8); MPV 7.7 fL (7.6-11.3); RBC Red Blood Cell Count 5.13 M/uL (4.33-5.43)
--- NOTE | 2020-11-27 20:37 | EDPHYS ---
Physician Documentation [facility] Name: Joe Bell III Age: 39 yrs Sex: Male : 1980 Arrival Date: 11/27/2020 Time: 16:44 Bed DX1 Private MD: ED Physician Kurt Narvaez HPI: 11/27 21:02 This 39 yrs old Male presents to ER via Ambulatory with complaints of kb Abdominal Pain. 21:02 The patient presents with abdominal pain right lateral upper abd. Onset: The kb symptoms/episode began/occurred yesterday. The symptoms do not radiate. Associated signs and symptoms: none. The symptoms are described as constant. Modifying factors: The symptoms are alleviated by nothing, the symptoms are aggravated by pressure. Severity of pain: At its worst the pain was moderate in the emergency department the pain is unchanged. The patient has not experienced similar symptoms in the past. The patient has not recently seen a physician. Historical: - Allergies: 17:36 No Known Allergies; ss - PMHx: 17:36 Seizures; ss - PSHx: 17:36 I\T\D; ss - Immunization history:: Client reports having NOT received the Covid vaccine. - Social history:: Smoking status: Patient denies any tobacco usage or history of. ROS: 21:02 Constitutional: Negative for fever, chills, and weight loss. kb 21:02 Abdomen/GI: Positive for abdominal pain, Negative for nausea, vomiting, and diarrhea. 21:02 All other systems are negative. Exam: 21:00 Constitutional: This is a well developed, well nourished patient who is awake, alert, kb and in no acute distress. Head/Face: Normocephalic, atraumatic. ENT: Moist Mucous membranes Cardiovascular: Regular rate and rhythm with a normal S1 and S2. No gallops, murmurs, or rubs. No pulse deficits. Respiratory: Respirations even and unlabored. No increased work of breathing, no retractions or nasal flaring. Skin: Warm, dry with normal turgor. Normal color. MS/ Extremity: Pulses equal, no cyanosis. Neurovascular intact. Full, normal range of motion. Neuro: Awake and alert, GCS 15, oriented to person, place, time, and situation. Moves all extremities. Normal gait. Psych: Awake, alert, with orientation to person, place and time. Behavior, mood, and affect are within normal limits. 21:00 Abdomen/GI: Inspection: abdomen appears normal, Bowel sounds: normal, in all quadrants, Palpation: moderate abdominal tenderness, in the anterior aspect of right lateral abdomen, right lateral, upper abd point tenderness. Vital Signs: 17:36 BP 142 / 92; Pulse 104; Resp 16; Temp 97.6(TE); Pulse Ox 99% on R/A; Weight 106.59 kg; ss Height 5 ft. 8 in. (172.72 cm); Pain 8/10; 20:59 BP 138 / 96; Pulse 98; Resp 16; Pulse Ox 98% on R/A; dh4 17:36 Body Mass Index 35.73 (106.59 kg, 172.72 cm) ss MDM: 17:46 Patient medically screened. kb 20:35 Data reviewed: vital signs, nurses notes. Data interpreted: Pulse oximetry: on room air kb is 99 %. Interpretation: normal. Counseling: I had a detailed discussion with the patient and/or guardian regarding: the historical points, exam findings, and any diagnostic results supporting the discharge/admit diagnosis, lab results, radiology results, the need for outpatient follow up, a family practitioner, to return to the emergency department if symptoms worsen or persist or if there are any questions or concerns that arise at home. 11/27 17:45 Order name: Basic Metabolic Panel 11/27 17:45 Order name: CBC with Diff 11/27 17:45 Order name: Hepatic Function 11/27 17:45 Order name: Lipase 11/27 17:45 Order name: Basic Metabolic Panel; Complete Time: 19:50 EDMS 11/27 17:45 Order name: CBC with Automated Diff; Complete Time: 19:50 EDMS 11/27 17:45 Order name: IV Saline Lock 11/27 17:45 Order name: Labs collected and sent 11/27 17:45 Order name: US Abdomen Limited; Complete Time: 19:06 kb 11/27 17:45 Order name: Liver (Hepatic) Function; Complete Time: 19:50 EDMS 11/27 17:45 Order name: Lipase; Complete Time: 19:50 EDMS Administered Medications: 20:47 Drug: [place] (HYDROcodone-acetaminophen) (7.5 mg-325 mg) 1 tabs {Note: RASS 0.} Route: bb PO; 20:47 Follow up: Response: Temperature is unchanged; Medication administered at discharge. bb Disposition Summary: 11/27/20 20:36 Discharge Ordered Location: Home kb Condition: Stable kb Diagnosis - Abdominal pain, unspecified - right upper lateral kb Followup: kb - With: Emergency Department - When: As needed - Reason: Worsening of condition Followup: kb - With: Private Physician - When: 2 - 3 days - Reason: Recheck today's complaints, Continuance of care, Re-evaluation by your physician Discharge Instructions: - Discharge Summary Sheet kb - Abdominal Pain, Adult, [id number] kb - Muscle Strain, [id number] kb Forms: - Medication Reconciliation Form kb - Thank You Letter kb - Antibiotic Education kb - Prescription Opioid Use kb Prescriptions: - Cyclobenzaprine 10 mg Oral Tablet - take 1 tablet by ORAL route every 8 hours As needed; 21 tablet; Refills: 0, kb Product Selection Permitted - Diclofenac Sodium 75 mg Oral tablet,delayed release (DR/EC) - take 1 tablet by ORAL route 2 times per day As needed; 30 tablet; Refills: 0, kb Product Selection Permitted Addendum: 11/30/2020 07:11 Co-signature as Attending Physician, Kurt Narvaez MD I agree with the assessment and k dr plan of care. Signatures: Dispatcher [employer] Carla Garza, MILLER APPRENTICE-C MILLER APPRENTICE-Kurt Queen MD MD kdr Ballard, Brenda, RN RN Adela Burris RN RN ss
--- NOTE | 2020-11-27 20:37 | ER ---
Nurse's Notes [facility] Name: Joe Bell III Age: 39 yrs Sex: Male : 1980 Arrival Date: 11/27/2020 Time: 16:44 Bed DX1 Private MD: Diagnosis: Abdominal pain, unspecified-right upper lateral Presentation: 11/27 17:35 Chief complaint: Spouse and/or significant other states: RUQ pain that began yesterday ss evening. Denies N/V/D. Coronavirus screen: Client denies travel out of the [place] in the last 14 days. Ebola Screen: Patient denies exposure to infectious person. Patient denies travel to an Ebola-affected area in the 21 days before illness onset. Initial Sepsis Screen: Does the patient meet any 2 criteria? No. Patient's initial sepsis screen is negative. Does the patient have a suspected source of infection? No. Patient's initial sepsis screen is negative. Risk Assessment: Do you want to hurt yourself or someone else? Patient reports no desire to harm self or others. Onset of symptoms was November 26, 2020. 17:35 Method Of Arrival: Ambulatory 17:35 Acuity: RAJNI 3 ss Historical: - Allergies: 17:36 No Known Allergies; ss - PMHx: 17:36 Seizures; ss - PSHx: 17:36 I\T\D; ss - Immunization history:: Client reports having NOT received the Covid vaccine. - Social history:: Smoking status: Patient denies any tobacco usage or history of. Screenin:45 Abuse screen: Denies threats or abuse. Nutritional screening: No deficits noted. em Tuberculosis screening: No symptoms or risk factors identified. Fall Risk None identified. Vital Signs: 17:36 BP 142 / 92; Pulse 104; Resp 16; Temp 97.6(TE); Pulse Ox 99% on R/A; Weight 106.59 kg; ss Height 5 ft. 8 in. (172.72 cm); Pain 8/10; 20:59 BP 138 / 96; Pulse 98; Resp 16; Pulse Ox 98% on R/A; dh4 17:36 Body Mass Index 35.73 (106.59 kg, 172.72 cm) ED Course: 16:44 Patient arrived in ED. mr 17:36 Triage completed. ss 17:36 Arm band placed on right wrist. 17:46 Carla Mcdermott [facility]-C [facility] kb 17:46 Kurt Narvaez MD is Attending Physician. kb 18:52 US Abdomen Limited In Process Unspecified. EDMS 23:45 Patient has correct armband on for positive identification. em 23:45 No provider procedures requiring assistance completed. Patient did not have IV access em during this emergency room visit. Administered Medications: 20:47 Drug: [place] (HYDROcodone-acetaminophen) (7.5 mg-325 mg) 1 tabs {Note: RASS 0.} Route: bb PO; 20:47 Follow up: Response: Temperature is unchanged; Medication administered at discharge. bb Outcome: 20:36 Discharge ordered by . kb 20:48 Patient left the ED. bb 23:45 Discharged to home ambulatory. em 23:45 Condition: stable 23:45 Discharge instructions given to patient, Instructed on discharge instructions, follow up and referral plans. Demonstrated understanding of instructions, follow-up care. Signatures: Dispatcher [employer] EDLA Carla Mcdermott FNP-C FNP-Jose JuarezaTania mr GrimesFerny tejeda, RN RN Galina Serrano RN RN Adela Burris RN RN Harish Carlson [facility]
[2020-11-27 20:54] VITALS: BP 142/92; TEMP 97.6; O2SAT 99
[2020-11-27] MEDS ORDERED: HYDROCODONE/APAP 7.5/325 MG TAB ONE (21:01)
== END 2020-11-27 20:48 | disposition home or self-care (01) ==
LOC: ER 16:39
DX: R10.11 Right upper quadrant pain (principal)
CPT/HCPCS: 36415; 76705; 80048; 80076; 83690; 85025; 99283

== ENCOUNTER 2025-01-01 20:54 | Emergency (ER) | payer OTHER ==
--- OUTSIDE RECORDS SUMMARY | 2025-01-01 20:57 | XMS REPORT | Continuity of Care Document ---
Author Name Unknown Address [address] [place] [address] [place] [address] [address] [place] [address] Care Team Providers Care Construction Electrician Name Role Phone NONE Primary Care Physician Unavailab le Yan_W Attending Clinician Unavailable Yan_W Admitting Clinician Unavailable Payers Payer Name Policy Type Policy Number Effective Date Expirati on Date Source [place] [id number] ([facility] [id number] Encounters Start Date/Time End Date/Time Encounter Type Admission Type Attending Clinicians Care Facility Care Department Encounter ID Source 2016-08-05 12:20:00 2016-08-05 12:20:00 Emergency E [facility] [id number] [facility]
[2025-01-01] MEDS ORDERED: DICYCLOMINE HCL 20 MG/2 ML AMP IM ONE (21:19)
[2025-01-01] MEDS ORDERED: NA CHLORIDE 0.9% 1,000 ML ONE (21:19)
[2025-01-01 21:47] LABS: Absolute Lymphocytes (CBC) 2.3 K/uL (0.7-4.9); Hematocrit 43.7 % (39.6-49.0); Hemoglobin 15.1 g/dL (13.6-17.9); MCH 30.9 pg (27.0-35.0); MCHC 34.5 g/dL (32.0-36.0); MCV 89.6 fL (80-100); MPV 7.0 fL (7.6-11.3); Nucleated RBC Absolute Count 0.0 (0-0); Nucleated Red Blood Cells % 0.0 % (0-0); RBC Red Blood Cell Count 4.88 M/uL (4.33-5.43); White Blood Count 7.20 thou/uL (4.3-10.9)
[2025-01-01 22:13] LABS: ALT/SGPT 23.0 U/L (16-61); AST/SGOT 16.0 U/L (15-37); Albumin 4.1 g/dL (3.4-5.0); Albumin/Globulin Ratio 1.2 (1.1-1.8); Alkaline Phosphatase 116.0 U/L (45-117); Anion Gap 6.7 mEq/L (5.0-15.0); BUN Blood Urea Nitrogen 10.0 mg/dL (7-18); Globulin 3.4 g/dL (2.3-3.5); Glucose Level 88.0 mg/dL (74-106); Lipase 27.0 U/L (13-75); Potassium 3.7 mEq/L (3.5-5.1)
[2025-01-02] MEDS ORDERED: KETOROLAC 30 MG/ML INJ ONE (00:56)
[2025-01-02] MEDS ORDERED: CIPROFLOXACIN HCL 500 MG TAB ONE (00:56)
[2025-01-02] MEDS ORDERED: METRONIDAZOLE 500mg IVPB 500 MG/100 ML BAG IV ONE (00:56)
--- NOTE | 2025-01-02 01:43 | ER ---
Nurse's Notes [facility] Name: Joe Bell III Age: 44 yrs Sex: Male : 1980 Arrival Date: 01/01/2025 Time: 20:54 Bed 13 Private MD: Diagnosis: Indeterminate colitis Presentation: 01/01 21:02 Chief complaint: Spouse and/or significant other states: patient was in severe rg5 abdominal pain after he went to rest, he is also constipated. Coronavirus screen: Client denies travel out of the [place] in the last 14 days. Ebola Screen: Patient negative for fever greater than or equal to 101.5 degrees Fahrenheit, and additional compatible Ebola Virus Disease symptoms Patient denies exposure to infectious person. Patient denies travel to an Ebola-affected area in the 21 days before illness onset. Initial Sepsis Screen: Does the patient meet any 2 criteria? No. Patient's initial sepsis screen is negative. Does the patient have a suspected source of infection? No. Patient's initial sepsis screen is negative. Risk Assessment: Do you want to hurt yourself or someone else? Patient reports no desire to harm self or others. Onset of symptoms was January 01, 2025. 21:02 Acuity: RAJNI 3 rg5 01/02 02:26 Method Of Arrival: Ambulatory tb4 Triage Assessment: 01/01 21:16 General: Appears in no apparent distress. comfortable, Behavior is calm, cooperative, rg5 appropriate for age. Pain: Complains of pain in abdomen. Neuro: Level of Consciousness is awake, alert, obeys commands, Oriented to person, place, time, situation. Cardiovascular: Denies chest pain. Respiratory: Airway is patent Trachea midline Respiratory pattern is regular, symmetrical. GI: Abdomen is round non-distended, Reports lower abdominal pain, upper abdominal pain, constipation, cramping. Historical: - Allergies: 21:16 No Known Allergies; rg5 - PMHx: 21:16 Seizures; rg5 - PSHx: 21:16 I\T\D; rg5 - Immunization history:: Adult Immunizations up to date. - Infectious Disease History:: Denies. - Social history:: Smoking status: Patient reports the use of cigarette tobacco products, smokes one pack cigarettes per day. Screenin:46 [facility] ED Fall Risk Assessment (Adult) History of falling in the last 3 months, tb4 including since admission No falls in past 3 months (0 pts) Confusion or Disorientation No (0 pts) Intoxicated or Sedated No (0 pts) Impaired Gait No (0 pts) Mobility Assist Device Used No (0 pt) Altered Elimination No (0 pt) Score/Fall Risk Level 0 - 2 = Low Risk Maintained a safe environment. Abuse screen: Denies threats or abuse. Denies injuries from another. Nutritional screening: No deficits noted. Tuberculosis screening: No symptoms or risk factors identified. Assessment: 21:19 Pain: Complains of pain in abdomen. GI: Bowel sounds present in left upper quadrant Abd rg5 is soft and non tender Reports lower abdominal pain, upper abdominal pain, constipation, cramping. 21:46 Reassessment: Patient denies pain at this time. General: Appears in no apparent tb4 distress. comfortable, Behavior is calm, cooperative. Pain: Denies pain. Neuro: Level of Consciousness is awake, alert, obeys commands, Oriented to person, place, time, situation, Moves all extremities. Full function Gait is steady, Speech is normal, Facial symmetry appears normal. Respiratory: Airway is patent Respiratory effort is even, unlabored, Respiratory pattern is regular, symmetrical. GI: Bowel sounds present X 4 quads. Patient had another bowel movement at 2133 Abd is soft and non tender X 4 quads. Reports constipation. : No signs and/or symptoms were reported regarding the genitourinary system. EENT: No signs and/or symptoms were reported regarding the EENT system. Derm: No signs and/or symptoms reported regarding the dermatologic system. Skin is intact, is healthy with good turgor, Skin is dry, Skin is normal, Skin temperature is warm. Musculoskeletal: No signs and/or symptoms reported regarding the musculoskeletal system. Circulation, motion, and sensation intact. Range of motion: intact in all extremities. 01/02 02:35 Reassessment: Patient is alert, oriented x 3, equal unlabored respirations, skin tb4 warm/dry/pink. Patient states feeling better. Patient states symptoms have improved. Vital Signs: 01/01 21:16 BP 129 / 90; Pulse 61; Resp 18; Temp 98.3; Pulse Ox 99% on R/A; Weight 70.76 kg; Height rg5 5 ft. 8 in. ; Pain 7/10; 22:18 BP 114 / 83; Pulse 59; Resp 17; Pulse Ox 99% on R/A; Pain 0/10; tb4 23:20 BP 125 / 83; Pulse 65; Resp 14; Pulse Ox 96% on R/A; Pain 0/10; tb4 18 00:21 BP 119 / 83; Pulse 69; Resp 18; Pulse Ox 97% on R/A; Pain 0/10; tb4 01:25 BP 126 / 75; Pulse 61; Resp 16; Pulse Ox 100% on R/A; tb4 02:25 BP 118 / 81; Pulse 73; Resp 17; Pulse Ox 98% on R/A; Pain 0/10; tb4 01/01 21:16 Body Mass Index 23.72 (70.76 kg, 172.72 cm) 5 01/01 21:16 Pain Scale: Adult rg5 22:18 Pain Scale: Adult tb4 23:20 Pain Scale: Adult tb4 01/02 00:21 Pain Scale: Adult tb4 02:25 Pain Scale: Adult tb4 ED Course: 01/01 20:30 No provider procedures requiring assistance completed. CT Scan. tb4 20:56 Patient arrived in ED. mr 20:57 [facility] cp 20:57 Jacek Salter MD is Attending Physician. cp 21:16 Triage completed. rg5 21:16 Arm band placed on. rg5 21:17 Radiology exam delayed due to lab results not completed at this time. (BUN/Creatinine) jc4 IV insertion attempt and/or patient not having appropriate IV at this time. 21:38 CBC with Diff Sent. vk 21:38 CMP Sent. vk 21:38 Lipase Sent. vk 21:38 Initial lab(s) drawn, by nv, sent to lab. Inserted saline lock: 20 gauge in right vk antecubital area, using aseptic technique. Blood collected. Flushed with 10 mL NS. 21:46 Patient has correct armband on for positive identification. Bed in low position. Call tb4 light in reach. Side rails up X 1. Adult w/ patient. Client placed on continuous cardiac and pulse oximetry monitoring. NIBP monitoring applied. Pulse ox on. Door closed. Warm blanket given. 22:38 CT Abd/Pelvis - IV Contrast Only In Process Unspecified. EDSD 01/02 01:42 Mik Mata MD is Referral Physician. cp 02:26 Provided Education on: Take medication as prescribed. tb4 02:29 IV discontinued, intact, bleeding controlled, No redness/swelling at site. Pressure tb4 dressing applied. Administered Medications: 01/01 21:41 Drug: NS 0.9% IV 1000 ml IV at 1 bolus Per protocol; to be given as a bolus over 60 tb4 minutes Route: IV; Rate: 1 bolus; Site: right antecubital; 23:55 Follow up: Response: No adverse reaction; IV Status: Completed infusion tb4 21:45 Drug: Dicyclomine IM 20 mg IM once Route: IM; Site: left deltoid; tb4 23:54 Follow up: Response: No adverse reaction tb4 01/02 01:35 Drug: Ketorolac IVP 15 mg IVP once Route: IVP; Site: right antecubital; tb4 01:54 Follow up: Response: No adverse reaction; Pain is decreased tb4 01:35 Drug: Dexamethasone IVP 10 mg IVP once; (not to exceed 40 mg) Route: IVP; Site: right tb4 antecubital; 01:55 Follow up: Response: No adverse reaction tb4 01:35 Drug: Ciprofloxacin PO 500 mg PO once Route: PO; tb4 01:55 Follow up: Response: No adverse reaction tb4 01:35 Drug: metroNIDAZOLE IVPB 500 mg 100 ml IVPB once over 30 mins Volume: 100 ml; Route: tb4 IVPB; Infused Over: 30 mins; Site: right antecubital; 02:25 Follow up: Response: No adverse reaction; IV Status: Completed infusion tb4 Medication: 01/01 21:46 VIS not applicable for this client. tb4 Outcome: 01/02 01:42 Discharge ordered by . cp 02:33 Discharged to home ambulatory, with family, kt5 02:33 Condition: improved 02:33 Discharge instructions given to patient, family, Instructed on discharge instructions, follow up and referral plans. Demonstrated understanding of instructions, follow-up care, medications, Prescriptions given X 4, 02:36 Patient left the ED. tb4 Signatures: Dispatcher [employer] EDSD Tania, Reg Estevan mr Jacek Petersen, PAElvaC PAZaynab Castillo cp, Rommel, RN RN rg5 Eliseo Lloyd jc4 Tianna Steward, RN RN tb4 Alicia Askew, RN RN kt5
--- NOTE | 2025-01-02 01:44 | EDPHYS ---
Physician Documentation [facility] Name: Joe Bell III Age: 44 yrs Sex: Male : 1980 Arrival Date: 01/01/2025 Time: 20:54 Bed 13 Private MD: AJITH Physician Jacek Salter HPI: 01/01 21:15 This 44 yrs old Male presents to ER via Unassigned with complaints of cp Abdominal Pain, Constipation. 21:15 The patient presents with abdominal pain in the lower abdomen. Onset: The cp symptoms/episode began/occurred suddenly, today. Associated signs and symptoms: Pertinent positives: constipation, nausea, with one bowel movement of loose stool, Pertinent negatives: blood in stools, chest pain, fever, vomiting. The symptoms are described as crampy. Historical: - Allergies: 21:16 No Known Allergies; rg5 - PMHx: 21:16 Seizures; rg5 - PSHx: 21:16 I\T\D; rg5 - Immunization history:: Adult Immunizations up to date. - Infectious Disease History:: Denies. - Social history:: Smoking status: Patient reports the use of cigarette tobacco products, smokes one pack cigarettes per day. ROS: 21:20 Constitutional: Negative for body aches, chills, fever, poor PO intake, cp 21:20 Eyes: Negative for injury, pain, redness, and discharge, cp 21:20 ENT: Negative for drainage from ear(s), ear pain, sore throat, difficulty swallowing, difficulty handling secretions, 21:20 Cardiovascular: Negative for chest pain, palpitations, 21:20 Respiratory: Negative for cough, shortness of breath, wheezing, 21:20 Abdomen/GI: Positive for abdominal pain, nausea, constipation, Negative for vomiting, diarrhea, black/tarry stool, rectal bleeding, 21:20 Neuro: Negative for altered mental status, dizziness, headache, weakness, 21:20 All other systems are negative, Exam: 21:25 Constitutional: The patient appears in no acute distress, alert, awake, non-toxic, well cp developed, well nourished, 21:25 Head/Face: Normocephalic, atraumatic. cp 21:25 Eyes: Periorbital structures: appear normal, Conjunctiva: normal, no exudate, no injection, Sclera: no appreciated abnormality, Lids and lashes: appear normal, bilaterally, 21:25 ENT: External ear(s): are unremarkable, Nose: is normal, Mouth: Lips: moist, Oral mucosa: moist, Posterior pharynx: Airway: no evidence of obstruction, patent, 21:25 Chest/axilla: Inspection: normal, 21:25 Cardiovascular: Rate: normal, Rhythm: regular, 21:25 Respiratory: the patient does not display signs of respiratory distress, Respirations: normal, no use of accessory muscles, no retractions, labored breathing, is not present, Breath sounds: are clear throughout, no decreased breath sounds, no stridor, no wheezing, 21:25 Abdomen/GI: Inspection: abdomen appears normal, Bowel sounds: active, all quadrants, Palpation: abdomen is soft and non-tender, in all quadrants, 21:25 Back: pain, is absent, ROM is normal, 21:25 Neuro: Orientation: to person, place \T\ time. Mentation: is normal, Motor: moves all fours, strength is normal, Sensation: is normal, Vital Signs: 21:16 BP 129 / 90; Pulse 61; Resp 18; Temp 98.3; Pulse Ox 99% on R/A; Weight 70.76 kg; Height rg5 5 ft. 8 in. ; Pain 7/10; 22:18 BP 114 / 83; Pulse 59; Resp 17; Pulse Ox 99% on R/A; Pain 0/10; tb4 23:20 BP 125 / 83; Pulse 65; Resp 14; Pulse Ox 96% on R/A; Pain 0/10; tb4 18 00:21 BP 119 / 83; Pulse 69; Resp 18; Pulse Ox 97% on R/A; Pain 0/10; tb4 01:25 BP 126 / 75; Pulse 61; Resp 16; Pulse Ox 100% on R/A; tb4 02:25 BP 118 / 81; Pulse 73; Resp 17; Pulse Ox 98% on R/A; Pain 0/10; tb4 17 21:16 Body Mass Index 23.72 (70.76 kg, 172.72 cm) rg5 01/01 21:16 Pain Scale: Adult rg5 22:18 Pain Scale: Adult tb4 23:20 Pain Scale: Adult tb4 18 00:21 Pain Scale: Adult tb4 02:25 Pain Scale: Adult tb4 MDM: 01/01 21:02 Medical Screening Exam initiated 01/02 00:00 Differential diagnosis: appendicitis, cholecystitis, Cholelithiasis, gastritis, cp pancreatitis, Ureterolithiasis, urinary tract infection, colitis. 01:41 Data reviewed: vital signs, nurses notes, lab test result(s), radiologic studies, CT cp scan, and as a result, I will discharge patient. 01:41 I considered the following discharge prescriptions or medication management in the emergency department Medications were administered in the Emergency Department. See MAR. 01:41 Counseling: I had a detailed discussion with the patient and/or guardian regarding the historical points, exam findings, and any diagnostic results supporting the discharge/admit diagnosis, lab results, radiology results, the need for outpatient follow up, a credit rating checker, to return to the emergency department if symptoms worsen or persist or if there are any questions or concerns that arise at home. Response to treatment: the patient's symptoms have mildly improved after treatment, and as a result, I will discharge patient. Special discussion: Based on the patient's Hx, exam, and Dx evaluation, there is no indication for emergent surgery or inpatient Tx. It is understood by the patient/guardian that if the Sx's persist or worsen they need to return immediately for re-evaluation. 01/01 21:14 Order name: CBC with Diff; Complete Time: 22:27 01/01 22:27 Interpretation: Normal except: MPV 7.0. 01/01 21:14 Order name: CMP; Complete Time: 22:27 01/01 22:27 Interpretation: Reviewed. 01/01 21:14 Order name: Lipase; Complete Time: 22:27 01/01 21:14 Order name: CT Abd/Pelvis - IV Contrast Only 01/01 21:14 Order name: IV Saline Lock; Complete Time: 21:38 01/01 21:14 Order name: Labs collected and sent; Complete Time: 21:38 Administered Medications: 01/01 21:41 Drug: NS 0.9% IV 1000 ml IV at 1 bolus Per protocol; to be given as a bolus over 60 tb4 minutes Route: IV; Rate: 1 bolus; Site: right antecubital; 23:55 Follow up: Response: No adverse reaction; IV Status: Completed infusion tb4 21:45 Drug: Dicyclomine IM 20 mg IM once Route: IM; Site: left deltoid; tb4 23:54 Follow up: Response: No adverse reaction tb4 01/02 01:35 Drug: Ketorolac IVP 15 mg IVP once Route: IVP; Site: right antecubital; tb4 01:54 Follow up: Response: No adverse reaction; Pain is decreased tb4 01:35 Drug: Dexamethasone IVP 10 mg IVP once; (not to exceed 40 mg) Route: IVP; Site: right tb4 antecubital; 01:55 Follow up: Response: No adverse reaction tb4 01:35 Drug: Ciprofloxacin PO 500 mg PO once Route: PO; tb4 01:55 Follow up: Response: No adverse reaction tb4 01:35 Drug: metroNIDAZOLE IVPB 500 mg 100 ml IVPB once over 30 mins Volume: 100 ml; Route: tb4 IVPB; Infused Over: 30 mins; Site: right antecubital; 02:25 Follow up: Response: No adverse reaction; IV Status: Completed infusion tb4 Disposition Summary: 01/02/25 01:42 Discharge Ordered Notes: Location: Home cp Problem: new cp Symptoms: have improved cp Condition: Stable cp Diagnosis - Indeterminate colitis cp Followup: cp - With: Mik Mata MD - When: 5 - 6 days - Reason: Recheck today's complaints Discharge Instructions: - Discharge Summary Sheet cp - Colitis cp Forms: - Medication Reconciliation Form cp - Antibiotic Education cp - Prescription Opioid Use cp - Patient Portal Instructions cp - Leadership Thank You Letter cp - Family Work Release vc1 Prescriptions: - Zofran 4 mg Oral Tablet - take 1 tablet ORAL route every 12 hours As needed; 20 tablet; Refills: 0, cp Product Selection Permitted - Cipro 500 mg Oral tablet - take 1 tablet ORAL route every 12 hours for 10 days; 20 tablet; Refills: 0, cp Product Selection Permitted - Metronidazole 500 mg Oral Tablet - take 1 tablet ORAL route every 8 hours; 30 tablet; Refills: 0, Product cp Selection Permitted - dicyclomine 20 mg Oral tablet - take 1 tablet ORAL route 4 times per day As needed for abdominal pain; 30 cp tablet; Refills: 0, Product Selection Permitted Addendum: 01/06/2025 11:40 Co-signature as Attending Physician, Jacek Salter MD I agree with the assessment and c ba plan of care. Signatures: Dispatcher [employer] Jacek Ray MD MD cha Page, Corey, PA-C PA-C Chadd Warren, RN RN rg5 Tianna Steward RN RN tb4
[2025-01-02 02:40] VITALS: TEMP 98.3
[2025-01-02 02:47] VITALS: BP 118/81; O2SAT 98
--- NOTE | 2025-01-02 06:11 | RAD REPORT ---
EXAM: CT Abdomen and Pelvis With Intravenous Contrast CLINICAL HISTORY: The patient is 44 years old and is Male; ABD PAIN TECHNIQUE: Axial computed tomography images of the abdomen and pelvis with intravenous contrast. Sagittal and coronal reformatted images were created and reviewed. This CT exam was performed using one or more of the following dose reduction techniques: automated exposure control, adjustment of the mA a nd/or kV according to patient size, and/or use of iterative reconstruction technique. COMPARISON: No relevant prior studies available. FINDINGS: LUNG BASES: Unremarkable. No mass. No consolidation. ABDOMEN: LIVER: Unremarkable. No mass. GALLBLADDER AND BILE DUCTS: The gallbladder is contracted. No calcified gallstones or ductal dilata tion is seen. PANCREAS: No ductal dilation. No mass. SPLEEN: Unremarkable. ADRENALS: Unremarkable. No mass. KIDNEYS AND URETERS: Unremarkable. The kidneys enhance symmetrically. No obstructing renal or urete ral calculus is seen. No hydronephrosis or hydroureter. No perinephric fluid or stranding. STOMACH AND BOWEL: The stomach is distended with food contents. The small bowel is normal in calibe r. Stool is present within the right and transverse colon. The left colon is decompressed. Mucosal thickening with mild surrounding stranding involving the left colon to level of the mid sigmoid is no moustapha. There is no evidence of obstruction. Stool is noted within the rectosigmoid colon. PELVIS: APPENDIX: The appendix is normal in caliber without surrounding inflammation. BLADDER: Unremarkable. No mass. REPRODUCTIVE: Unremarkable as visualized. ABDOMEN and PELVIS: INTRAPERITONEAL SPACE: Unremarkable. No free air. No significant fluid collection. BONES/JOINTS: No acute fracture. SOFT TISSUES: The soft tissues are normal. VASCULATURE: Unremarkable. No abdominal aortic aneurysm. LYMPH NODES: Unremarkable. No enlarged lymph nodes. IMPRESSION: Findings concerning for colitis specifically involving the left colon. Electronically signed by: Shraddha Jiang MD 01/01/2025 11:59 PM CDT RP Due to temporary technical issues with the PACS/mobli reporting system, reports are being clay d by the in-house radiologist without review as a courtesy to ensure prompt reporting the interpreting radiologist is fully responsible for the content of the report. Transcribed Date/Time: 01/02/2025 6:11 AM
== END 2025-01-02 02:36 | disposition home or self-care (01) ==
LOC: ER 20:54
DX: K52.3 Indeterminate colitis (principal); F17.210 Nicotine dependence, cigarettes, uncomplicated
CPT/HCPCS: 96365; 96361; 85025; 36415; 83690; 80053; 74177; 96375; 96372; 99284; Q9967; J0500; J1100; J7030